=== PATIENT | male | born 1990 | race African-American/Black ===

== ENCOUNTER 2020-06-29 19:17 | Emergency (ER) | payer OTHER ==
[2020-06-29] MEDS: Ketorolac 60 MG/2 ML SDV IM ONE (19:39)
[2020-06-29] MEDS: Cyclobenzaprine 10 MG Tab PO ONE (19:39)
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
== END 2020-06-29 22:12 | disposition home or self-care (01) ==
LOC: FB.ED 19:17
DX: M62.830 Muscle spasm of back (principal); M54.2 Cervicalgia; M54.5 Low back pain; J45.909 Unspecified asthma, uncomplicated; F17.210 Nicotine dependence, cigarettes, uncomplicated; V89.2XXA Person injured in unspecified motor-vehicle accident, traffic, initial encounter
CPT/HCPCS: 72100; 72125; 96372; 99283; 99285-25; A9270-GY; J1885